=== PATIENT | female | born 1990 | race Two or more races ===

== ENCOUNTER 2021-01-14 16:13 | Emergency (ER) | payer OTHER ==
[~2021-01-14] VITALS: Ht 167.6 cm; Wt 80.7 kg
== END 2021-01-14 21:39 | disposition home or self-care (01) ==
LOC: ER 16:13
DX: U07.1 COVID-19 (principal); B96.0 Mycoplasma pneumoniae [M. pneumoniae] as the cause of diseases classified elsewhere; B34.9 Viral infection, unspecified